=== PATIENT | male | born 2000 | race Caucasian/White ===

== ENCOUNTER 2022-05-21 00:43 | Inpatient (IN) | payer OTHER ==
[~2022-05-21] VITALS: Ht 175.3 cm; Wt 70.3 kg
[2022-05-21] MEDS ORDERED: IV NORMAL SALINE 1000 ML BAG IV ONE ×2 (01:15→07:00)
[2022-05-21] MEDS ORDERED: ONDANSETRON 4 MG/2 ML VIAL ONE ×2 (01:30→12:41)
[2022-05-21] MEDS ORDERED: ONDANSETRON 4 MG/2 ML VIAL IV ONE (01:30)
[2022-05-21] MEDS ORDERED: MORPHINE SULFATE 4 MG/1 ML DISP.SYRIN IV ONE (01:30)
[2022-05-21] MEDS ORDERED: MORPHINE SULFATE 2 MG/1 ML DISP.SYRIN ONE (01:31)
[2022-05-21] MEDS ORDERED: MORPHINE SULFATE 4 MG/1 ML DISP.SYRIN ONE (01:31)
[2022-05-21 01:52] LABS: HEMATOCRIT 45.5 % (36.7-47.1); MEAN CORPUSCULAR HEMOGLOBIN 29.7 uug (23.8-33.4); PLATELET COUNT (AUTO) 328 K/uL (152-348)
[2022-05-21 01:58] LABS: *BILIRUBIN,URIN NEGATIVE (NEGATIVE); *BLOOD, URINE NEGATIVE (NEGATIVE); *CLARITY,URINE CLEAR (CLEAR); *COLOR,URINE YELLOW (YELLOW); *KETONES,URINE 1+ (NEGATIVE); *UROBILINOGEN,URINE 0.2 E.U./dl (NORMAL); LEUKOCYTE ESTERASE ,URINE NEGATIVE (NEGATIVE); NITRITE, URINE NEGATIVE (NEGATIVE); UGLUCOSE NEGATIVE (NEGATIVE)
[2022-05-21 02:07] LABS: BILIRUBIN,DIRECT 0.3 mg/dL (0.0-0.2); BILIRUBIN,TOTAL 1.8 mg/dL (0.2-1.0); CREATININE 1.3 mg/dL (0.6-1.3); POTASSIUM 3.5 mmol/L (3.5-5.1); TOTAL PROTEIN, SERUM 8.2 g/dL (6.4-8.2)
--- NOTE | 2022-05-21 02:15 | NUR ---
Pt verbalizes feeling better. no active n/v/d at this time.
[2022-05-21] MEDS ORDERED: IOHEXOL 300MG/ML 50 ML VIAL ONE ×2 (02:23→02:25)
[2022-05-21] MEDS ORDERED: IV NORMAL SALINE 250 ML IV ONE (02:24)
[2022-05-21] MEDS ORDERED: SWABABLE VALVE TRANSFER SET EA MC ONE (02:24)
--- NOTE | 2022-05-21 02:30 | NUR ---
pt taken by polysomnography tech for CT of abd/pelvis
--- NOTE | 2022-05-21 02:47 | NUR ---
Pt back from CT.
[2022-05-21] MEDS ORDERED: PIPERACILLIN SODIUM/TAZOBACTAM 3.375 G in IV DEXTROSE 5% 50 ML IV ONE (03:00)
[2022-05-21] MEDS ORDERED: PIPERACILLIN/TAZOBACTAM/D5W 50 ML IV ONE ×2 (03:07→06:26)
[2022-05-21] MEDS ORDERED: HYDROMORPHONE 1 MG/1 ML DISP.SYRIN IV ONE ×2 (03:35→03:45)
[2022-05-21] MEDS ORDERED: HYDROMORPHONE 1 MG/1 ML DISP.SYRIN ONE (03:38)
[2022-05-21] MEDS ORDERED: ACETAMINOPHEN ES 500 MG TABLET ONE (03:52)
[2022-05-21] MEDS ORDERED: ACETAMINOPHEN ES 500 MG TABLET PO ONE (04:00)
[2022-05-21] MEDS ORDERED: IBUPROFEN 800 MG TABLET ONE (05:09)
[2022-05-21] MEDS ORDERED: IBUPROFEN 800 MG TABLET PO ONE (05:15)
[2022-05-21] MEDS ORDERED: IV D5 1/2 NS 1000 ML 1,000 ML IV PRN (05:30)
[2022-05-21] MEDS ORDERED: REMEDY ESSENTIAL ZINC PASTE 113 GM TP PRN (05:30)
[2022-05-21] MEDS ORDERED: MORPHINE SULFATE 2 MG/1 ML DISP.SYRIN IV PRN (05:30)
[2022-05-21] MEDS ORDERED: PIPERACILLIN SODIUM/TAZOBACTAM 3.375 G in IV DEXTROSE 5% 50 ML IV SCH (06:00)
[2022-05-21] MEDS ORDERED: PIPERACILLIN SODIUM/TAZO 3.375 GM VIAL ONE (06:25)
--- NOTE | 2022-05-21 07:33 | NUR ---
report given to Trev-surgical scrub technician.
[2022-05-21] MEDS ORDERED: IV D5LR 1,000 ML IV ONE (08:15)
--- NOTE | 2022-05-21 08:15 | NUR ---
NS finished infusing. Devan done infusing. Several other meds not reassessed during PM shift.
[2022-05-21] MEDS ORDERED: BUPIVACAINE/EPI PF 0.5% 10 ML VIAL ONE (09:42)
[2022-05-21] MEDS ORDERED: FENTANYL CITRATE 100 MCG/2 ML AMPUL ONE (09:43)
[2022-05-21] MEDS ORDERED: HYDROMORPHONE 2 MG/1 ML DISP.SYRIN ONE (09:44)
[2022-05-21] MEDS ORDERED: MIDAZOLAM HCL 2 MG/2 ML VIAL ONE (09:44)
[2022-05-21] MEDS ORDERED: ROCURONIUM BROMIDE 50 MG/5 ML VIAL ONE (09:44)
[2022-05-21] MEDS ORDERED: MEPERIDINE 25 MG/1 ML DISP.SYRIN ONE (12:16)
[2022-05-21] MEDS ORDERED: CEFAZOLIN 1 G VIAL ONE (12:41)
[2022-05-21] MEDS ORDERED: METOCLOPRAMIDE HCL 10 MG/2 ML VIAL ONE (12:41)
[2022-05-21] MEDS ORDERED: LIDOCAINE-MPF 2% 5 ML VIAL ONE (12:41)
[2022-05-21] MEDS ORDERED: NEOSTIGMINE METHYLSULFATE 10 MG/10 ML VIAL ONE (12:41)
[2022-05-21] MEDS ORDERED: PROPOFOL 200 MG/20 ML BOTTLE ONE (12:41)
[2022-05-21] MEDS ORDERED: GLYCOPYRROLATE 0.2 MG/ML VIAL ONE (12:41)
--- NOTE | 2022-05-21 12:50 | NUR ---
Filled out a pre-op checklist, delivered it to OR unit
[2022-05-21] MEDS ORDERED: METOCLOPRAMIDE HCL 10 MG/2 ML VIAL IV PRN (13:15)
--- NOTE | 2022-05-21 13:20 | NUR ---
Patient admitted to med surg s/p appendectomy with Jejunum ilial and cecum. Open appendectomy with BRENTON drain to bulb suction. Bright red drainage noted to drain. On 2L 02 via NC, no SOB or coughing. incentive spirometer initiated. Patient is AAO x4, no significant medical history. Called mother and made aware patient is in unit and she may visit. patient VS WNL.
[2022-05-21 13:23] VITALS: BP 113/66
[2022-05-21 13:38] VITALS: BP 124/71
[2022-05-21 14:08] VITALS: BP 113/69
[2022-05-21] MEDS: PANTOPRAZOLE SODIUM 40 MG VIAL IV SCH (14:12)
[2022-05-21] MEDS: PIPERACILLIN SODIUM/TAZOBACTAM 3.375 G in IV DEXTROSE 5% 100 ML IV SCH ×2 (14:12→22:19)
[2022-05-21] MEDS: POTASSIUM CHLORIDE 20 MEQ in IV D5 1/2 NS 1000 ML 1,000 ML IV PRN (14:13)
[2022-05-21] MEDS: MORPHINE SULFATE 2 MG/1 ML DISP.SYRIN IV PRN ×3 (14:13→19:42)
[2022-05-21 14:38] VITALS: BP 122/80
[2022-05-21] MEDS: HYDROCODONE/APAP 5-325MG TABLET PO PRN ×2 (14:50→23:29)
[2022-05-21 16:31] VITALS: BP 127/84
[2022-05-21] MEDS: ACETAMINOPHEN 325 MG TABLET PO PRN (17:39)
--- NOTE | 2022-05-21 18:15 | NUR ---
Raisa Sharpe NP aware of fever of 102.8, no new orders.
[2022-05-21 20:00] VITALS: BP 116/76
[2022-05-22] MEDS: ACETAMINOPHEN 325 MG TABLET PO PRN ×2 (00:43→19:40)
[2022-05-22] MEDS: POTASSIUM CHLORIDE 20 MEQ in IV D5 1/2 NS 1000 ML 1,000 ML IV PRN ×3 (01:36→22:53)
[2022-05-22] MEDS: MORPHINE SULFATE 2 MG/1 ML DISP.SYRIN IV PRN ×9 (02:06→23:35)
[2022-05-22 04:00] VITALS: BP 110/52
[2022-05-22] MEDS: PIPERACILLIN SODIUM/TAZOBACTAM 3.375 G in IV DEXTROSE 5% 100 ML IV SCH ×3 (05:39→21:13)
[2022-05-22 06:30] LABS: HEMATOCRIT 39.2 % (36.7-47.1); MEAN CORPUSCULAR HEMOGLOBIN 29.6 uug (23.8-33.4); MEAN CORPUSCULAR VOLUME 86.5 fL (73.0-96.2); PLATELET COUNT (AUTO) 252 K/uL (152-348)
--- NOTE | 2022-05-22 06:48 | NUR ---
Slept intermittently, easy to arouse alert and oriented x 4. In no acute distress. Cooling measures provided, tylenol given as ordered, at 0500 temp 99.6. BRENTON drain intact with 100cc sanguineous drainage. Pain medication administered as ordered. Call light within easy reach. Needs attended.
[2022-05-22 06:51] LABS: CREATININE 1.2 mg/dL (0.6-1.3); PHOSPHOROUS 2.5 mg/dL (2.5-4.9); POTASSIUM 3.7 mmol/L (3.5-5.1)
[2022-05-22] MEDS ORDERED: METOCLOPRAMIDE HCL 10 MG/2 ML VIAL IV PRN (07:51)
[2022-05-22] MEDS: PANTOPRAZOLE SODIUM 40 MG VIAL IV SCH (08:08)
[2022-05-22 08:17] LABS: MAGNESIUM 1.8 mg/dL (1.8-2.4)
[2022-05-22] MEDS: HYDROCODONE/APAP 5-325MG TABLET PO PRN ×3 (09:10→20:02)
[2022-05-22 11:35] VITALS: BP 119/74
[2022-05-22] MEDS ORDERED: MELATONIN 3 MG TABLET PO PRN (11:45)
--- NOTE | 2022-05-22 13:00 | NUR ---
Patient ab;le to walk a few steps in room with PT and BEAD FLIPPER. Patient was premedicated for this exercise and tolerated it well. Minimal dizziness reported. Patient parents at bedside.
--- NOTE | 2022-05-22 14:45 | NUR ---
Status report given to Dr. Kong, Patient made aware Dr. Kong will see him tomorrow.
[2022-05-22 16:05] VITALS: BP 126/82
--- NOTE | 2022-05-22 16:20 | NUR ---
Diet upgraded to soft diet.
--- NOTE | 2022-05-22 19:30 | NUR ---
Received pt awake, alert and orientedx4. PT in no acute distress. Dad and mother at bedside. Pt surgical site intact and no blood noted. BRENTON drain draining serosanguinous fluid.Iv intact. Safety and comfort provided. Will continue to monitor.
[2022-05-22 20:00] VITALS: BP 130/70
--- NOTE | 2022-05-22 20:00 | NUR ---
at 1940 H Tylenol 650 mg prn given to pt for 99.6 temp. After 30 minutes pt temp is 99.1. Ar 2002 [place] 5-325 mg prn given to pt for pain.After 40 minutes pt stated he still has pain so Morphine 2mg prn given to pt for abdominal pain. PT GIVEN zOFRAN AT 2012h FOR VOMITTING. AFTER 30 MINUTES IT HELPED. Pt tolerated it well. Will continue to monitor,
[2022-05-22] MEDS: ONDANSETRON 4 MG/2 ML VIAL IV PRN (20:12)
--- NOTE | 2022-05-22 22:03 | NUR ---
mELATONIN 6MG PRN GIVEN TO PT FOR SLEEP. WILL CONTINUE TO MONITOR.
--- NOTE | 2022-05-22 23:55 | NUR ---
Morphine that was given on is not effective because pt is still in pain.Pt given Morphine 2mg prn at 2335H for abdominal pain. Pt tolerated it well. Will continue to monitor.
[2022-05-23] MEDS: ONDANSETRON 4 MG/2 ML VIAL IV PRN (01:54)
[2022-05-23] MEDS: MORPHINE SULFATE 2 MG/1 ML DISP.SYRIN IV PRN ×5 (01:56→21:00)
[2022-05-23] MEDS: HYDROCODONE/APAP 5-325MG TABLET PO PRN (02:30)
--- NOTE | 2022-05-23 03:51 | NUR ---
At 0154H Zofran 4mg prn given to pt for nausea. Pt tolerated it well. After 30 minutes pt stated he felt better but still feel abdominal pressure and still on pain . Morphine 2mg prn given at 0156H for abdominal pain. After 30 minutes pt stated he is still in pain so pt was given [place] 5-325mg prn at 0230H Pt tolerated it well. After minutes pt stated he felt better .Will continue to monitor.
[2022-05-23 04:00] VITALS: BP 147/96
[2022-05-23] MEDS: PIPERACILLIN SODIUM/TAZOBACTAM 3.375 G in IV DEXTROSE 5% 100 ML IV SCH ×3 (05:36→21:00)
--- NOTE | 2022-05-23 06:37 | NUR ---
Pt in no acute distress. Pt had episodes of nausea and vomiting. Pt given Reglan 10 mg at 0536H for nausea and vomiting. Pt given Morphine 2mg prn at 0602H for abdominal pain. Pt tolerated it well. After 30 minutes pt can still the pain as per pt but lesser and for vomiting pt stated he feels like vomiting still. Pt had intact jpdrain and draining serosanguinous fluid. Prescribed medication given and pt tolerated it well. Iv intact. Safety and comfort provided. All needs are met. Vital sign stable.Will endorse to incoming nurse for continuity of care.
[2022-05-23 06:40] LABS: HEMATOCRIT 40.3 % (36.7-47.1); MEAN CORPUSCULAR HEMOGLOBIN 29.7 uug (23.8-33.4); MEAN CORPUSCULAR VOLUME 86.7 fL (73.0-96.2); PLATELET COUNT (AUTO) 276 K/uL (152-348)
[2022-05-23 06:55] LABS: CREATININE 1.2 mg/dL (0.6-1.3); MAGNESIUM 1.9 mg/dL (1.8-2.4); PHOSPHOROUS 2.4 mg/dL (2.5-4.9)
[2022-05-23] MEDS: MAGNESIUM HYDROXIDE 30 ML LIQUID UDC PO PRN (08:33)
[2022-05-23] MEDS: PANTOPRAZOLE SODIUM 40 MG VIAL IV SCH (08:33)
[2022-05-23 11:07] VITALS: BP 125/78
[2022-05-23] MEDS: LORAZEPAM 2 MG/1 ML VIAL IV PRN ×2 (11:19→20:29)
[2022-05-23] MEDS: POTASSIUM CHLORIDE 20 MEQ in IV D5 1/2 NS 1000 ML 1,000 ML IV PRN (14:15)
[2022-05-23 15:01] VITALS: BP 133/91
[2022-05-23] MEDS ORDERED: NEUTRA PHOS PACKET PO ONE (16:00)
--- NOTE | 2022-05-23 18:46 | NUR ---
No episodes of emesis, Ativan IV effective for nausea. Patient able to ambulate with PT and nursing staff. Moving gas with shift, no BM. Seen By Dr. Kong and removed surgical dressing. Right LQ abd noted with incision with vannessa, clean and dry. Patient had 315 ml of drainage today. Patient's family at bedside through out shift.
[2022-05-23 20:00] VITALS: BP 160/64
[2022-05-23] MEDS ORDERED: MEROPENEM 1 G in IV NORMAL SALINE 100 ML IV SCH ×2 (21:14→21:15)
[2022-05-24] MEDS: POTASSIUM CHLORIDE 20 MEQ in IV D5 1/2 NS 1000 ML 1,000 ML IV PRN ×2 (02:07→20:32)
[2022-05-24] MEDS: LORAZEPAM 2 MG/1 ML VIAL IV PRN ×3 (03:46→18:36)
[2022-05-24] MEDS: MORPHINE SULFATE 2 MG/1 ML DISP.SYRIN IV PRN ×3 (04:11→20:48)
[2022-05-24 04:14] VITALS: BP 141/75
--- NOTE | 2022-05-24 05:21 | NUR ---
Slept intermittently, father at bedside. C/o pain and nausea intermittently. No distress noted. Tolerated all medication well. IV site intact. Able to ambulate. BRENTON drain draining well, serosanguineous fluid. Will endorse to day shift.
[2022-05-24] MEDS: MAGNESIUM HYDROXIDE 30 ML LIQUID UDC PO PRN (06:12)
[2022-05-24 06:49] LABS: HEMATOCRIT 37.5 % (36.7-47.1); MEAN CORPUSCULAR HEMOGLOBIN 30.2 uug (23.8-33.4); MEAN CORPUSCULAR VOLUME 86.5 fL (73.0-96.2); PLATELET COUNT (AUTO) 304 K/uL (152-348)
[2022-05-24 07:13] LABS: BILIRUBIN,DIRECT 0.1 mg/dL (0.0-0.2); BILIRUBIN,TOTAL 0.6 mg/dL (0.2-1.0); MAGNESIUM 2.1 mg/dL (1.8-2.4); PHOSPHOROUS 3.1 mg/dL (2.5-4.9); POTASSIUM 3.7 mmol/L (3.5-5.1); TOTAL PROTEIN, SERUM 6.1 g/dL (6.4-8.2)
[2022-05-24 08:00] VITALS: BP 120/70
--- NOTE | 2022-05-24 09:00 | NUR ---
Received patient awake, alert and oriented with no acute distress noted. Denies nausea, and pain. Discussed the goals of the day with patient and father.
[2022-05-24] MEDS: MEROPENEM 1 G in IV NORMAL SALINE 100 ML IV SCH ×2 (10:37→17:30)
[2022-05-24] MEDS: PANTOPRAZOLE SODIUM 40 MG VIAL IV SCH (10:38)
[2022-05-24 12:00] VITALS: BP 121/59
[2022-05-24] MEDS ORDERED: MIRALAX 17 GM POWD.PACK PO PRN (12:00)
[2022-05-24] MEDS: DOCUSATE SODIUM 100 MG CAPSULE PO SCH ×2 (12:21→20:32)
[2022-05-24 15:55] VITALS: BP 133/73
--- NOTE | 2022-05-24 18:46 | NUR ---
Patient awake, alert and oriented with no acute distress noted. Denies pain. C/O nausea twice which was relieved with two doses of Ativan. Will continue to monitor.
[2022-05-24 19:40] VITALS: BP 143/75
[2022-05-25] MEDS: MEROPENEM 1 G in IV NORMAL SALINE 100 ML IV SCH ×3 (00:27→16:31)
[2022-05-25] MEDS: DOCUSATE SODIUM 100 MG CAPSULE PO SCH ×2 (08:27→20:19)
[2022-05-25] MEDS: PANTOPRAZOLE SODIUM 40 MG VIAL IV SCH (08:27)
[2022-05-25] MEDS: POTASSIUM CHLORIDE 20 MEQ in IV D5 1/2 NS 1000 ML 1,000 ML IV PRN ×2 (08:34→20:23)
[2022-05-25 09:15] LABS: HEMATOCRIT 38.7 % (36.7-47.1); MEAN CORPUSCULAR HEMOGLOBIN 30.5 uug (23.8-33.4); MEAN CORPUSCULAR VOLUME 86.4 fL (73.0-96.2); PLATELET COUNT (AUTO) 329 K/uL (152-348)
[2022-05-25 09:31] LABS: BILIRUBIN,TOTAL 0.9 mg/dL (0.2-1.0); MAGNESIUM 2.2 mg/dL (1.8-2.4); POTASSIUM 4.1 mmol/L (3.5-5.1); TOTAL PROTEIN, SERUM 6.6 g/dL (6.4-8.2)
[2022-05-25] MEDS: ARGININE/GLUTAMINE/CALCIUM BMB 1 EACH POWD.PACK PO SCH ×2 (11:00→16:37)
[2022-05-25 11:40] VITALS: BP 102/61
[2022-05-25] MEDS: GLUCERNA SHAKE 237 ML CAN PO SCH ×2 (12:15→16:37)
[2022-05-25 15:24] VITALS: BP 144/61
[2022-05-25 15:35] VITALS: BP 144/70
[2022-05-25 20:15] VITALS: BP 116/62
[2022-05-25] MEDS: ACETAMINOPHEN 325 MG TABLET PO PRN (20:19)
[2022-05-26] MEDS: MEROPENEM 1 G in IV NORMAL SALINE 100 ML IV SCH ×2 (01:00→08:32)
[2022-05-26 04:51] VITALS: BP 110/61
--- NOTE | 2022-05-26 05:50 | NUR ---
Pt slept throughout the night. Denies pain or SOB. Able to ambulate. IV site intact. Will endorse to day shift.
[2022-05-26 06:15] LABS: HEMATOCRIT 39.7 % (36.7-47.1); MEAN CORPUSCULAR VOLUME 86.4 fL (73.0-96.2); PLATELET COUNT (AUTO) 363 K/uL (152-348)
[2022-05-26 06:22] LABS: CREATININE 1.1 mg/dL (0.6-1.3); MAGNESIUM 2.1 mg/dL (1.8-2.4); POTASSIUM 4.2 mmol/L (3.5-5.1)
[2022-05-26] MEDS: POTASSIUM CHLORIDE 20 MEQ in IV D5 1/2 NS 1000 ML 1,000 ML IV PRN (07:15)
[2022-05-26] MEDS ORDERED: PANTOPRAZOLE SODIUM 40 MG TABLET.DR PO SCH (08:05)
[2022-05-26] MEDS: ARGININE/GLUTAMINE/CALCIUM BMB 1 EACH POWD.PACK PO SCH (08:30)
[2022-05-26] MEDS: GLUCERNA SHAKE 237 ML CAN PO SCH ×2 (08:30→12:03)
[2022-05-26] MEDS: DOCUSATE SODIUM 100 MG CAPSULE PO SCH (08:55)
--- NOTE | 2022-05-26 10:03 | NUR ---
pt seen by dr mendoza surgical drainage removed .pt tolerated the procedure well
[2022-05-26] MEDS ORDERED: LORA-258 PO (10:48)
[2022-05-26] MEDS ORDERED: ONDA4TAB11 PO (10:48)
[2022-05-26] MEDS ORDERED: ERTA1VIA4 IJ (11:39)
[2022-05-26 12:00] VITALS: BP 118/57
--- NOTE | 2022-05-26 15:37 | NUR ---
MIDLINE NUMBER [id number] INSERTED TO LEFT UPPER ARM BY GERALDO LYNCH
--- NOTE | 2022-05-26 15:48 | NUR ---
DC ORDERS RECEIVED NOTED AND CARRIED ,DC INSTRUCTION AND EDUCATION GIVEN TO THE PT AND HIS FAMILY PT LEFT THE FACILITY VIA PRIVATE CAR IN STABLE CONDITION
== END 2022-05-26 15:50 | disposition home health service (06) | DRG 853 ==
LOC: ER 01:40 → MEDSURG3 08:53
PROVIDERS: ADMIT Nurse Practitioner Acute Care; ATTEND Nurse Practitioner Family
PROC: 0DTJ0ZZ Resection of Appendix, Open Approach (ICD-10-PCS; principal; 2022-05-21)
PROC: 0WJG4ZZ Inspection of Peritoneal Cavity, Percutaneous Endoscopic Approach (ICD-10-PCS; 2022-05-21)
PROC: 0DTH0ZZ Resection of Cecum, Open Approach (ICD-10-PCS; 2022-05-21)
PROC: 0DBB0ZZ Excision of Ileum, Open Approach (ICD-10-PCS; 2022-05-21)
PROC: 05H633Z Insertion of Infusion Device into Left Subclavian Vein, Percutaneous Approach (ICD-10-PCS; 2022-05-26)
PROC: B547ZZA Ultrasonography of Left Subclavian Vein, Guidance (ICD-10-PCS; 2022-05-26)
DX: A41.9 Sepsis, unspecified organism (principal); K35.33 Acute appendicitis with perforation, localized peritonitis, and gangrene, with abscess; E87.1 Hypo-osmolality and hyponatremia; N17.9 Acute kidney failure, unspecified; Z16.12 Extended spectrum beta lactamase (ESBL) resistance; E86.0 Dehydration; B96.20 Unspecified Escherichia coli [E. coli] as the cause of diseases classified elsewhere; R74.01 Elevation of levels of liver transaminase levels; Z20.822 Contact with and (suspected) exposure to COVID-19; K76.1 Chronic passive congestion of liver
CPT/HCPCS: 36415; 83690; 83735; 84100; 85025; 86850; 86900; 86901; 87040; 87070; 87077; 87205; 97161; A4663; A9150; C9113; G0378; J0690; J1170; J2060; J2175; J2185; J2250; J2270; J2405; J2543; J2765; J3010; J3480; J3490; J7040; Q9967